=== PATIENT | male | born 1975 | race Caucasian/White ===

== ENCOUNTER 2017-06-10 19:20 | Emergency (ER) | payer OTHER ==
[~2017-06-10] VITALS: Ht 182.9 cm; Wt 118.0 kg
[2017-06-10] MEDS ORDERED: VERA120T3 PO (19:36)
[2017-06-10] MEDS ORDERED: LISI-515 PO (19:36)
[2017-06-10] MEDS ORDERED: METO-338 PO (19:38)
[2017-06-10] MEDS ORDERED: ASPI-516 CHEW (19:38)
[2017-06-10] MEDS ORDERED: METF1000 PO (19:38)
[2017-06-10 19:39] VITALS: BP 196/102; PULSE 102; RESP 19; TEMP 99.3; O2SAT 99
[2017-06-10] MEDS ORDERED: SODIUM CHLOR 0.9% 1000 ML INJ 1,000 ML IV SCH (19:44)
--- NOTE | 2017-06-10 19:44 | PD ---
HPI Chief Complaint: Abdominal Pain Time Seen by Provider: 19:26 Travel History International Travel<30 days: No Contact w/Intl Traveler<30days: No Traveled to known affect area: No History of Present Illness HPI Patient is a 42-year-old male presents to emergency with complaints of abdominal pain. Patient reports abdominal pain began this morning while he was trying to have a bowel movement. Patient reports that he has increased pain to his left lower abdomen, reports that he was unable to have a bowel movement today. Reports that he normally has BM's every day. Reports constipation today. Reports dysuria with urinary urgency and frequency. Denies fever/ chills. Denies penile discharge. PFSH Past Medical History Hypertension: Yes Past Surgical History Surgical History: No Previous Surgery Social History Alcohol Use: No Tobacco Use: No Substance Use: No Allergies-Medications (Allergen,Severity, Reaction): Coded Allergies: Cephalosporins (Verified Allergy, Severe, 06/10/17) cephalexin (Verified Allergy, Severe, 06/10/17) shellfish derived (Verified Allergy, Severe, 06/10/17) sulfamethoxazole (Verified Allergy, Severe, 06/10/17) trimethoprim (Verified Allergy, Severe, 06/10/17) Sulfa (Sulfonamide Antibiotics) (Verified Allergy, Unknown, 06/10/17) Reported Meds & Prescriptions Reported Meds & Active Scripts Active Percocet (Oxycodone-Acetaminophen) 5-325 mg Tab 1 Tab PO Q6H PRN Ibuprofen 600 Mg Tab 600 Mg PO Q6H PRN Flomax (Tamsulosin HCl) 0.4 Mg Cap 0.4 Mg PO HS Reported Metformin (Metformin HCl) 1,000 Mg Tab 1,000 Mg PO BIDPC Aspirin 81 Mg Chew 81 Mg CHEW DAILY Lopressor (Metoprolol Tartrate) 100 Mg Tab 100 Mg PO BID Lisinopril 20 Mg Tab 20 Mg PO BID Verapamil (Verapamil HCl) 120 Mg Tab 240 Mg PO DAILY Review of Systems General / Constitutional: No: Fever Eyes: No: Visual changes HENT: No: Headaches Cardiovascular: No: Chest Pain or Discomfort Respiratory: No: Shortness of Breath Gastrointestinal: Positive: Abdominal Pain, Constipation, No: Nausea, Vomiting , Diarrhea Genitourinary: No: Dysuria Musculoskeletal: No: Pain Skin: No Rash Neurologic: No: Weakness Psychiatric: No: Depression Endocrine: No: Polydipsia Hematologic/Lymphatic: No: Easy Bruising Physical Exam Narrative GENERAL: Mild distress SKIN: Focused skin assessment warm/dry. HEAD: Atraumatic. Normocephalic. EYES: Pupils equal and round. No scleral icterus. No injection or drainage. ENT: No nasal bleeding or discharge. Mucous membranes pink and moist. NECK: Trachea midline. No JVD. CARDIOVASCULAR: Regular rate and rhythm. No murmur appreciated. RESPIRATORY: No accessory muscle use. Clear to auscultation. Breath sounds equal bilaterally. GASTROINTESTINAL: Abdomen soft, increased tenderness to left lower abdomen, nondistended. Hepatic and splenic margins not palpable. MUSCULOSKELETAL: No obvious deformities. No clubbing. No cyanosis. No edema. NEUROLOGICAL: Awake and alert. No obvious cranial nerve deficits. Motor grossly within normal limits. Normal speech. PSYCHIATRIC: Appropriate mood and affect; insight and judgment normal. Data Data Last Documented VS Vital Signs Date Time Temp Pulse Resp B/P (MAP) Pulse Ox O2 Delivery O2 Flow Rate FiO2 06/10/17 20:57 92 18 162/102 (122) 99 Room Air 06/10/17 19:39 99.3 Orders Orders Complete Blood Count With Diff (06/10/17 19:35) Comprehensive Metabolic Panel (06/10/17 19:35) Urinalysis - C+S If Indicated (06/10/17 19:35) Ct Abd/Pel W/O Iv Contrast (06/10/17 19:35) Iv Access Insert/Monitor (06/10/17 19:35) Ecg Monitoring (06/10/17 19:35) NPO (06/10/17 19:35) Ondansetron Inj (Zofran Inj) (06/10/17 19:45) Sodium Chlor 0.9% 1000 Ml Inj (Ns 1000 M (06/10/17 19:44) Sodium Chloride 0.9% Flush (Ns Flush) (06/10/17 19:45) Ketorolac Inj (Toradol Inj) (06/10/17 19:45) Strain Urine PRN (06/10/17 20:57) Labs Laboratory Tests Test 06/10/17 20:11 06/10/17 20:30 White Blood Count 9.9 TH/MM3 Red Blood Count 4.93 MIL/MM3 Hemoglobin 12.7 GM/DL Hematocrit 39.2 % Mean Corpuscular Volume 79.4 FL Mean Corpuscular Hemoglobin 25.8 PG Mean Corpuscular Hemoglobin Concent 32.5 % Red Cell Distribution Width 16.0 % Platelet Count 275 TH/MM3 Mean Platelet Volume 9.8 FL Neutrophils (%) (Auto) 76.9 % Lymphocytes (%) (Auto) 12.4 % Monocytes (%) (Auto) 10.2 % Eosinophils (%) (Auto) 0.0 % Basophils (%) (Auto) 0.5 % Neutrophils # (Auto) 7.6 TH/MM3 Lymphocytes # (Auto) 1.2 TH/MM3 Monocytes # (Auto) 1.0 TH/MM3 Eosinophils # (Auto) 0.0 TH/MM3 Basophils # (Auto) 0.0 TH/MM3 CBC Comment DIFF FINAL Differential Comment Blood Urea Nitrogen 14 MG/DL Creatinine 1.47 MG/DL Random Glucose 122 MG/DL Total Protein 7.9 GM/DL Albumin 3.8 GM/DL Calcium Level 8.8 MG/DL Alkaline Phosphatase 64 U/L Aspartate Amino Transf (AST/SGOT) 17 U/L Alanine Aminotransferase (ALT/SGPT) 27 U/L Total Bilirubin 0.4 MG/DL Sodium Level 137 MEQ/L Potassium Level 3.9 MEQ/L Chloride Level 103 MEQ/L Carbon Dioxide Level 28.8 MEQ/L Anion Gap 5 MEQ/L Estimat Glomerular Filtration Rate 53 ML/MIN Urine Color YELLOW Urine Turbidity CLEAR Urine pH 7.5 Urine Specific [place] 1.024 Urine Protein 30 mg/dL Urine Glucose (UA) NEG mg/dL Urine Ketones NEG mg/dL Urine Occult Blood MOD Urine Nitrite NEG Urine Bilirubin NEG Urine Urobilinogen LESS THAN 2.0 MG/DL Urine Leukocyte Esterase NEG Urine RBC 72 /hpf Urine WBC 2 /hpf Urine Hyaline Casts 3 /lpf Urine Mucus FEW /lpf Microscopic Urinalysis Comment CULT NOT INDICATED MDM Medical Decision Making Medical Screen Exam Complete: Yes Emergency Medical Condition: Yes Medical Record Reviewed: Yes Interpretation(s) Vital Signs Date Time Temp Pulse Resp B/P (MAP) Pulse Ox O2 Delivery O2 Flow Rate FiO2 06/10/17 19:39 102 19 196/102 (133) 99 Room Air Differential Diagnosis Constipation, colitis, electrolyte abnormality Narrative Course During the course of the patients emergency department visit, the patients history, examination, and differential diagnosis were reviewed with the patient. The patient was placed on a youth nutritional monitor with oximetry and frequent blood pressure monitoring. The patient had an IV access obtained and blood work sent for analysis. The patient was initially provided IVF as well as antiemetics and toradol The patients laboratory studies were reviewed and remarkable for: CBC & BMP Diagram 06/10/17 20:11 CBC & BMP Diagram 06/10/17 20:11 Total Protein 7.9, Albumin 3.8, Calcium Level 8.8, Alkaline Phosphatase 64, Aspartate Amino Transf (AST/SGOT) 17, Alanine Aminotransferase (ALT/SGPT) 27, Total Bilirubin 0.4 Radiology studies were reviewed and remarkable for: Last Impressions Abdomen/Pelvis CT 06/10/171934 Signed Impressions: Service Date/Time: , June 10, 2017 19:45 - CONCLUSION: 6 mm stone in the proximal left ureter with moderate dilatation of the left collecting system. Noel Cota MD Patient feeling much better at this time. I reviewed all labs and studies with patient in detail. He will follow up with urology as outpatient. Signs and symptoms of when to return to the emergency was reviewed patient in detail. Diagnosis Primary Impression: Kidney stone on left side Additional Impression: Renal insufficiency Patient Instructions: General Instructions Additional Instructions: Please provide patient with a copy of their lab work and studies at discharge* * Please follow up with your primary care doctor in 2-3 days Return to the ER if symptoms worsen or progress Return to the ER as needed Please strain your urine, bring your kidney stones to urologist office for follow-up Follow up with urologist in 2-3 days Med/Other Pt SpecificInfo: Prescription(s) given Scripts Oxycodone-Acetaminophen (Percocet) 5-325 mg Tab 1 TAB PO Q6H Y for PAIN, #10 TAB 0 Refills Prov: Elsa Sosa DO 06/10/17 Ibuprofen (Ibuprofen) 600 Mg Tab 600 MG PO Q6H Y for Pain/Inflammation, #40 TAB 0 Refills Prov: Elsa Sosa DO 06/10/17 Tamsulosin (Flomax) 0.4 Mg Cap 0.4 MG PO HS for Manage Prostate Problems, #10 CAP 0 Refills Prov: Elsa Sosa DO 06/10/17 Disposition: 01 DISCHARGE HOME Condition: Stable Elsa Sosa DO Jun 10, 2017 19:44
[2017-06-10] MEDS ORDERED: KETOROLAC TROMETHAMINE 30 MG/ML (IVP) VIAL IV PUSH ONE (19:45)
[2017-06-10] MEDS ORDERED: ONDANSETRON HCL 4 MG/2 ML VIAL IVP ONE (19:45)
[2017-06-10] MEDS ORDERED: SODIUM CHLORIDE 0.9% FLUSH 10 ML FLUSH IV FLUSH PRN (19:45)
[2017-06-10 20:19] VITALS: BP 181/103; PULSE 95; O2SAT 97
--- NOTE | 2017-06-10 20:23 | RADRPT ---
EXAM DATE/TIME: 06/10/2017 19:45 [facility] COMPARISON: No previous studies available for comparison. INDICATIONS : Left lower qaudrant pain. ORAL CONTRAST: No oral contrast ingested. RADIATION DOSE: 14.41 CTDIvol (mGy) MEDICAL HISTORY : None SURGICAL HISTORY : None. ENCOUNTER: Initial ACUITY: 1 day PAIN SCALE: 8/10 LOCATION: Left lower quadrant TECHNIQUE: Volumetric scanning of the abdomen and pelvis was performed. Using automated exposure control and ad justment of the mA and/or kV according to patient size, radiation dose was kept as low as reasonably achievable to obtain optimal diagnostic quality images. DICOM format image data is available electro nically for review and comparison. FINDINGS: LOWER LUNGS: There is a calcified granuloma at the right lower lobe. LIVER: Homogeneous density without lesion. There is no dilation of the biliary tree. No calcified gallston es. SPLEEN: Calcified granulomas are seen. PANCREAS: Within normal limits. KIDNEYS: There is a 6 mm stone seen in the proximal left ureter. This is approximate 7 cm distal to the UPJ. T here is moderate dilatation of the left collecting system. There is mild left perinephric stranding. The right kidney is unremarkable. ADRENAL GLANDS: Within normal limits. VASCULAR: There is no aortic aneurysm. BOWEL/MESENTERY: The stomach, small bowel, and colon demonstrate no acute abnormality. There is no free intraperitone al air or fluid. The appendix is normal. ABDOMINAL WALL: Within normal limits. RETROPERITONEUM: There is no lymphadenopathy. BLADDER: No wall thickening or mass. REPRODUCTIVE: Within normal limits. INGUINAL: There is no lymphadenopathy or hernia. MUSCULOSKELETAL: Within normal limits for patient age. CONCLUSION: 6 mm stone in the proximal left ureter with moderate dilatation of the left collecting system. Noel Cota MD on June 10, 2017 at 20:18 Board Certified Radiologist. This report was verified electronically.
[2017-06-10 20:37] LABS: AUTOMATED NEUTROPHIL # 7.6 TH/MM3 (1.8-7.7); BASOPHIL % 0.5 % (0.0-2.0); HEMATOCRIT 39.2 % (39.0-51.0); HEMO FLAGS DIFF FINAL; LYMPH % 12.4 % (9.0-44.0); LYMPHOCYTE # 1.2 TH/MM3 (1.0-4.8); MEAN CELL VOLUME 79.4 FL (80.0-100.0); MEAN CORPUSCULAR HEMOGLOBIN 25.8 PG (27.0-34.0); MEAN CORPUSCULAR HGB CONC 32.5 % (32.0-36.0); MONO % 10.2 % (0.0-8.0); NEUT % 76.9 % (16.0-70.0); PLATELET COUNT 275 TH/MM3 (150-450); RED BLOOD COUNT 4.93 MIL/MM3 (4.50-5.90); WHITE BLOOD COUNT 9.9 TH/MM3 (4.0-11.0)
[2017-06-10 20:57] VITALS: BP 162/102; PULSE 92; RESP 18; O2SAT 99
[2017-06-10 20:58] LABS: ALT (GPT) 27 U/L (12-78); ANION GAP 5 MEQ/L (5-15); AST (GOT) 17 U/L (15-37); BICARBONATE 28.8 MEQ/L (21.0-32.0); BLOOD UREA NITROGEN 14 MG/DL (7-18); CHLORIDE 103 MEQ/L (98-107); GLOMERULAR FILTRATION RATE 53 ML/MIN (>89); POTASSIUM 3.9 MEQ/L (3.5-5.1); SODIUM (NA) 137 MEQ/L (136-145)
[2017-06-10] MEDS ORDERED: IBUP-232 PO (20:58)
[2017-06-10] MEDS ORDERED: TAMS5CAP PO (20:58)
[2017-06-10] MEDS ORDERED: PERC5TAB12 PO (20:58)
[2017-06-10 21:01] LABS: ALKALINE PHOSPHATASE 64 U/L (45-117); TOTAL BILIRUBIN ADULT 0.4 MG/DL (0.2-1.0)
[2017-06-10 21:27] LABS: BLOOD, URINE MOD (NEG); COMMENT (UR) CULT NOT INDICATED; CULTURE IF INDICATED CULT NOT INDICATED; GLUCOSE,URINE NEG (NEG); HYALINE CAST, URINE 3 /lpf (RARE); KETONE, URINE NEG (NEG); MUCUS URINE FEW /lpf (OCC); NITRITE,URINE NEG (NEG); PH, URINE 7.5 (5.0-8.5); URINE COLOR YELLOW (YELLW/STRAW)
== END 2017-06-10 21:40 ==
LOC: NEPD 19:20
DX: N20.0 Calculus of kidney (principal); N28.9 Disorder of kidney and ureter, unspecified; K59.00 Constipation, unspecified; R30.0 Dysuria; R39.15 Urgency of urination; R35.0 Frequency of micturition; I10 Essential (primary) hypertension; Z79.82 Long term (current) use of aspirin; Z79.899 Other long term (current) drug therapy
CPT/HCPCS: 74176; 80053; 81001; 85025; 96361; 96374; 96375; 99285; J1885; J2405; J7030